=== PATIENT | female | born 1980 ===

== ENCOUNTER → 2016-06-24 | Outpatient (CLI) | payer OTHER ==
--- NOTE | 2016-06-24 08:59 | DX ---
Right Foot, Four Views With Weightbearing 8:22 a.m. Clinical History: 35-year-old female with chronic plantar fasciitis and infracalcaneal bursitis. Technique: Weightbearing lateral and AP views and medial and lateral oblique views of the right foot are obtained. Comparison Study: None. Findings: Bone mineralization is preserved. There is some mild asymmetric joint space narrowing invol ving the medial portion of the right great toe metatarsophalangeal joint, and there is a small subcho ndral geode with faint subchondral sclerosis involving the distal lateral aspect of the great toe met atarsal head. There is a prominent plantar calcaneal degenerative enthesophyte, and a tiny posterior calcaneal enthesophyte where the Achilles tendon inserts. Boehler's angle is normal. The subtalar vannesa nt is normal. There is an unfused os trigonum posterior to the talus, and an unfused os peroneum michael g the lateral midfoot. The tarsometatarsal alignment is anatomic. There is no ankle joint effusion. T here is a well-corticated ossific density involving the medial base of the great toe distal phalanx a t the interphalangeal joint. Impression: Prominent plantar calcaneal enthesophyte.
== END ==
LOC: CIMAGING 08:03
PROVIDERS: ATTEND Podiatrist
DX: M77.52 Other enthesopathy of left foot and ankle (principal); M72.2 Plantar fascial fibromatosis
CPT/HCPCS: 73630-PO

== ENCOUNTER → 2017-01-30 | Outpatient (CLI) | payer OTHER | LOC: FIMAGING 15:17 | PROVIDERS: ATTEND Podiatrist | DX: M72.2 Plantar fascial fibromatosis (principal); M77.21 Periarthritis, right wrist; G57.51 Tarsal tunnel syndrome, right lower limb ==